=== PATIENT | female | born 1955 | race Caucasian/White ===

== ENCOUNTER → 2020-06-23 | Outpatient (CLI) | payer BC, SELFPAY ==
[2020-06-23 10:36] LABS: Anion Gap 6 (5-15); BUN 8 mg/dL (7-18); BUN/Creat Ratio 10.2 RATIO (10-20); Chloride 110 mmol/L (98-107); Cholesterol 202 mg/dL (200); Creatinine, Serum 0.78 mg/dL (0.55-1.02); EST Glomerular Filtration Rate 79 mL/min (>60); Est Glom Filt Rate - Afr Amer 95 mL/min (>60); Glucose 82 mg/dL (74-106); High Density Lipoprotein 59 mg/dL; Phosphorus 3.4 mg/dL (2.5-4.9); Potassium 3.6 mmol/L (3.5-5.1); Sodium Level 142 mmol/L (136-145); Thyroid Stim Hormone (TSH) 2.12 uIU/mL (0.358-3.74); Triglycerides 99 mg/dL; Very Low Density Lipoprotein 20 mg/dL (5-40)
== END | disposition home or self-care (01) ==
LOC: MTLAB 07:07
PROVIDERS: PCP Family Medicine; Referring Provider Family Medicine; Visit Provider Family Medicine
DX: M81.0 Age-related osteoporosis without current pathological fracture (principal); Z13.220 Encounter for screening for lipoid disorders
CPT/HCPCS: 36415; 80048; 80061; 82306; 82330; 84100; 84443

== ENCOUNTER 2021-10-13 15:43 | Outpatient (CLI) | payer BC, SELFPAY ==
[2021-10-13 18:03] LABS: Absolute Lymphocyte Count 1.94 X10^3/uL (0.83-4.51); Absolute Neutrophil Count 3.5 X10^3/uL (2.0-7.7); Basophil# 0.04 X10^3/uL; Basophil% 0.6 % (0-1); Eosinophil# 0.37 X10^3/uL; Hematocrit 44.6 % (37-47); Hemoglobin 14.9 g/dL (12.0-15.0); Lymphocyte # 1.94 X10^3/ul (0.83-4.51); Lymphocyte % 31.3 % (19-41); Mean Corp Hgb Conc 33.4 g/dL (32-36); Mean Corpuscular Hgb 30.3 pg (27.0-32.0); Mean Corpuscular Volume 90.8 fL (81-99); Mean Platelet Vol. 11.6 fl (6.2-12.0); Monocyte# 0.38 X10^3/uL; Monocyte% 6.1 % (0-10); NRBC Flagged by Analyzer 0 % (0-5); Neutrophil # 3.45 X10^3/uL (2.7-7.7); Neutrophil % 55.7 % (47-70); Platelet Count 182 K/mm3 (150-450); RBC Distribution Width CV 12.6 % (11.6-14.6); RBC Distribution Width SD 41.6 fl (35.1-43.9); Red Blood Count 4.91 M/mm3 (4.2-5.4); White Blood Count 6.2 K/mm3 (4.4-11.0)
[2021-10-13 18:41] LABS: Anion Gap 5 (5-15); BUN 21 mg/dL (7-18); BUN/Creat Ratio 27.1 RATIO (10-20); Chloride 105 mmol/L (98-107); Creatinine, Serum 0.77 mg/dL (0.55-1.02); EST Glomerular Filtration Rate 80 mL/min (>60); Est Glom Filt Rate - Afr Amer 96 mL/min (>60); Glucose 85 mg/dL (74-106); Sodium Level 140 mmol/L (136-145); Thyroid Stim Hormone (TSH) 1.31 uIU/mL (0.358-3.74)
== END 2021-10-13 23:59 | disposition short-term general hospital (02) ==
PROVIDERS: PCP Family Medicine; Referring Provider Family Medicine; Visit Provider Family Medicine
DX: R00.2 Palpitations (principal)
CPT/HCPCS: 36415; 80048; 84443; 85025

== ENCOUNTER → 2022-01-21 | Outpatient (CLI) | payer BC, SELFPAY ==
--- NOTE | 2022-01-21 07:51 | ECHOD_ITS ---
Version 2 Reason For Study: Arrhythmia Procedure This was a 2D Doppler, Color Flow transthoracic echocardiogram. Exam performed in department. Left Ventricle Normal LV size. Left ventricular systolic function is normal. The estimated ejection fraction is 55 %. Stage 1 diastolic dysfunction. No regional wall motion abnormalities noted. Right Ventricle Normal RV size. Normal systolic function. Atria Normal left atrium. Normal right atrium. Patent foramen ovale. Mitral Valve Normal mitral valve. Tricuspid Valve Normal tricuspid valve. Mild (1+) tricuspid valve insufficiency. Aortic Valve Trisinus/trileaflet aortic valve. Mild (1+) eccentric aortic valve insufficiency. Pulmonic Valve Normal pulmonic valve. Great Vessels Normal aortic root. The pulmonary artery is normal size. Normal inferior vena cava. Pericardium/Pleural No pericardial effusion. Medication Performed a rapid injection of agitated mix of 9 cc saline and 1cc air to assess for atrial septal defect. MMode/2D Measurements & Calculations LVIDd: 4.1 cm IVSd: 1.0 cm Ao root diam: 3.3 cm LVIDs: 2.4 cm LVPWd: 1.0 cm RVDd: 3.9 cm FS: 40.8 % LAV(MOD-bp): 50.8 ml LVAd ap4: 22.4 cm2 SV(MOD-sp4): 42.0 ml LAV(MOD-bp) Indexed: 24.2 ml/m2 LVLd ap4: 6.5 cm LAV(MOD-sp2): 45.0 ml EDV(MOD-sp4): 63.8 ml LAV(MOD-sp4): 53.1 ml EDV(sp4-el): 65.8 ml LVAs ap4: 11.8 cm2 LVLs ap4: 5.4 cm ESV(MOD-sp4): 21.8 ml ESV(sp4-el): 21.9 ml EF(MOD-sp4): 65.8 % EF(sp4-el): 66.8 % SV(sp4-el): 43.9 ml LA A4 area: 19.0 cm2 LA dimension(2D): 4.2 cm RA A4 area: 15.1 cm2 Doppler Measurements & Calculations MV E max robert: 42.4 cm/sec Lat Peak E' Robert: 10.5 cm/sec Med Peak E' Robert: 5.8 cm/sec MV A max robert: 51.8 cm/sec E/E' lat: 4.0 E/E' med: 7.3 MV E/A: 0.82 Ao V2 max: 130.5 cm/sec LV V1 max: 113.2 cm/sec PA V2 max: 99.0 cm/sec Ao max P.8 mmHg LV V1 max P.1 mmHg Ao V2 mean: 91.5 cm/sec Ao mean P.7 mmHg Ao V2 VTI: 28.6 cm TR max robert: 213.2 cm/sec TR max P.2 mmHg ECHO/Echo Complete Interpretation Summary Normal LV size. Left ventricular systolic function is normal. Patent foramen ovale. The estimated ejection fraction is 55 %. Mild (1+) eccentric aortic valve insufficiency. Stage 1 diastolic dysfunction. Mild (1+) tricuspid valve insufficiency. Ordering Physician: Angel Rosenthal Referring Physician: Rajesh Carrlol Performed By: Virginia Beyer, RDCS, RVT
== END | disposition home or self-care (01) ==
LOC: CVS 07:51
PROVIDERS: PCP Family Medicine; Referring Provider Internal Medicine Cardiovascular Disease; Visit Provider Internal Medicine Cardiovascular Disease
DX: R00.2 Palpitations (principal)
CPT/HCPCS: 93306; A4216

== ENCOUNTER → 2022-04-13 | Outpatient (CLI) | payer BC, SELFPAY ==
--- NOTE | 2022-04-13 14:51 | STRESSREP ---
Stress Test Report Exercise myocardial perfusion stress test. 66-year-old lady with a history of paroxysmal atrial fibrillation. Stress protocol: Resting EKG demonstrates sinus rhythm with a rate of 62 bpm normal intervals are noted resting blood pressure is 104/70 mmHg. The patient exercised according to regular Neal protocol for a total duration of 4 minutes and 30 seconds. Patient completed 1 minute and 30 seconds into stage II of the Neal protocol the maximum heart rate attained was 160 bpm which was 102% of max impacted heart rate the maximum workload was 7 metabolic equivalents. At rest there were no ST or T wave changes noted to suggest ischemia and at peak exercise upsloping ST changes were noted with did not meet the criteria for ischemia. No clinical angina was noted. Test was terminated due to dyspnea. The peak blood pressure was 180/100 mmHg. Myocardial perfusion protocol. 14.6 mCi of technetium 99m sestamibi was injected at rest. The patient exercised according to regular Neal protocol for 4-1/2 minutes and at peak exercise 44.9 mCi of technetium 99m sestamibi was injected stress images were obtained stress and rest images were reconstructed and compared in the short axis vertical long and horizontal long axis. Gated images were also obtained. Perfusion SPECT analysis: Review of the stress images demonstrate normal uptake of tracer noted in all areas of the myocardium. The resting images similar demonstrate normal uptake of tracer noted in all areas of the myocardium. No areas of reversibility are noted suggest ischemia and no previous infarct is noted. Gated SPECT analysis: The gated ejection fraction is 74%. Conclusion: Normal exercise myocardial perfusion stress test at a moderate workload. Preserved ejection fraction.
== END | disposition home or self-care (01) ==
PROVIDERS: PCP Family Medicine; Referring Provider Physician Assistant Medical; Visit Provider Physician Assistant Medical
DX: G47.33 Obstructive sleep apnea (adult) (pediatric) (principal); I48.0 Paroxysmal atrial fibrillation; E66.9 Obesity, unspecified; R06.00 Dyspnea, unspecified
CPT/HCPCS: 78452; 93017; A9500; A4216

== ENCOUNTER → 2022-04-14 | Outpatient (CLI) | payer BC, SELFPAY | END | disposition home or self-care (01) | LOC: SL 21:35 | PROVIDERS: PCP Family Medicine; Visit Provider Physician Assistant Medical | DX: G47.33 Obstructive sleep apnea (adult) (pediatric) (principal); I48.0 Paroxysmal atrial fibrillation; E66.9 Obesity, unspecified | CPT/HCPCS: 95810 ==

== ENCOUNTER → 2023-02-16 | Outpatient (CLI) | payer MEDICARE, SELFPAY ==
[2023-02-16 15:31] LABS: Absolute Lymphocyte Count 2.14 X10^3/uL (0.83-4.51); Absolute Neutrophil Count 3.5 X10^3/uL (2.0-7.7); Basophil# 0.04 X10^3/uL; Basophil% 0.6 % (0-1); Eosinophil# 0.09 X10^3/uL; Eosinophils% 1.4 % (0-5); Hematocrit 46.6 % (37-47); Lymphocyte # 2.14 X10^3/ul (0.83-4.51); Lymphocyte % 34.1 % (19-41); Mean Corp Hgb Conc 32.2 g/dL (32-36); Mean Corpuscular Volume 93.2 fL (81-99); Mean Platelet Vol. 12.1 fl (6.2-12.0); Monocyte# 0.46 X10^3/uL; Monocyte% 7.3 % (0-10); NRBC Flagged by Analyzer 0 % (0-5); Neutrophil # 3.53 X10^3/uL (2.7-7.7); Neutrophil % 56.3 % (47-70); Platelet Count 179 K/mm3 (150-450); RBC Distribution Width CV 12.7 % (11.6-14.6); RBC Distribution Width SD 43.1 fl (35.1-43.9); White Blood Count 6.3 K/mm3 (4.4-11.0)
[2023-02-16 16:38] LABS: Anion Gap 2 (5-15); BUN 15 mg/dL (7-18); BUN/Creat Ratio 16.8 RATIO (10-20); Calcium,Total 8.8 mg/dL (8.5-10.1); Chloride 110 mmol/L (98-107); EST Glomerular Filtration Rate 67 mL/min (>60); Est Glom Filt Rate - Afr Amer 81 mL/min (>60); Glucose 86 mg/dL (74-106); Potassium 3.9 mmol/L (3.5-5.1); Sodium Level 140 mmol/L (136-145); Thyroid Stim Hormone (TSH) 2.08 uIU/mL (0.358-3.74)
== END | disposition home or self-care (01) ==
LOC: MTLAB 14:02
PROVIDERS: PCP Family Medicine; Referring Provider Physician Assistant Medical; Visit Provider Physician Assistant Medical
DX: R00.2 Palpitations (principal); I48.0 Paroxysmal atrial fibrillation
CPT/HCPCS: 36415; 80048; 84443; 85025

== ENCOUNTER → 2023-02-17 | Outpatient (CLI) | payer MEDICARE, SELFPAY | END | disposition home or self-care (01) | PROVIDERS: PCP Family Medicine; Referring Provider Physician Assistant Medical; Visit Provider Physician Assistant Medical | DX: R00.2 Palpitations (principal); I48.0 Paroxysmal atrial fibrillation | CPT/HCPCS: 93225; 93226 ==

== ENCOUNTER → 2023-04-26 | Outpatient (CLI) | payer MEDICARE, SELFPAY ==
--- NOTE | 2023-04-26 10:01 | BI_ITS ---
MAMMOGRAPHY - BILATERAL SCREENING REASON FOR EXAM: Female, 67 years old. Routine annual screening examination. PERTINENT HISTORY: Grandmother with breast cancer. Remote left ultrasound breast biopsy. TECHNIQUE: Digital bilateral breast ange (3D mammographic acquisition) in the CC and MLO projections. 2-D mediolateral oblique (MLO) and craniocaudad (CC) views of both breasts were obtained. CAD: Full Field Digital Mammography with Computer Added Detection was performed. COMPARISON: Comparison is made with prior outside examination dated June 09, 2021. FINDINGS: Breast Composition: There are scattered areas of fibroglandular density. There are no dominant masses or suspicious calcifications. A tissue clip marker is seen in the upper central portion of the left breast. Stable benign-appearing left axillary lymph nodes. No other significant abnormalities are identified. There has been no significant change since the prior study. BI/SCRN MAMM (CAD)W/ANGE BILAT IMPRESSION: Stable bilateral screening mammogram. Yearly follow-up mammogram recommended. (A) ASSESSMENT CATEGORY: BIRADS Category 2: Benign. A letter regarding these results will be sent to the patient by the facility within 30 days. Approximately 10% of breast cancers are not detected by mammography. A normal mammogram should not delay biopsy of a clinically suspicious abnormality. [id number] Electronically Signed: Jaun Caballero MD at 11:24 EDT ,
--- NOTE | 2023-04-26 10:07 | BD_ITS ---
STUDY: DUAL ENERGY X-RAY ABSORPTIOMETRY / DXA REASON FOR EXAM: Female, 67 years old. [id number] TECHNIQUE: Bone Mineral Density (BMD) measurements of lumbar spine and bilateral hips were obtained. COMPARISON: None. FINDINGS: Lumbar Spine (L1-L4): g/cm2 (0.908) / T-score (-1.2) / Z-score (0.6) Findings are suggestive of osteopenia with a low fracture risk. Left Femur Total: g/cm2 (0.778) / T-score (-1.3) / Z-score (-0.1) Left Femoral Neck: g/cm2 (0.635) / T-score (-1.9) / Z-score (-0.4) Right Femur Total: g/cm2 (0.796) / T-score (-1.2) / Z-score (0.1) Right Femoral Neck: g/cm2 (0.669) / T-score (-1.6) / Z-score (-0.1) BD/Dexa Bone Density Study IMPRESSION: The patient is considered osteopenic as outlined below according to World Claudy Organization (WHO) criteria with a moderate fracture risk. Reference Information: The T-score is the number of standard deviations above or below the standard which is normal for young adults at their peak bone mineral density. The World Health Organization (WHO) interprets the T-scores as follows: Above -1 Normal bone density Between -1 and -2.5 Osteopenia Equal to / or below -2.5 Osteoporosis As a practical clinical guideline, osteopenia may be graded as follows: Mild -1 through -1.5 Moderate -1.6 through -2.0 Severe -2.1 through -2.4 The Z-score is the number of standard deviations above or below age-matched controls. A Z-score of less than -1.5 would be considered abnormal. References: 1. NIH Osteoporosis and Related Bone Diseases www osteo.org 2. International Society for Clinical Densitometry www iscd.org 3. National Osteoporosis Foundation www nof.org Electronically Signed: Jaun Caballero MD at 10:40 EDT ,
== END | disposition home or self-care (01) ==
LOC: OPBD 09:59
PROVIDERS: PCP Family Medicine; Referring Provider Family Medicine; Visit Provider Family Medicine
DX: Z12.31 Encounter for screening mammogram for malignant neoplasm of breast (principal); Z78.0 Asymptomatic menopausal state; M81.0 Age-related osteoporosis without current pathological fracture
CPT/HCPCS: 77063; 77067; 77080

== ENCOUNTER → 2024-05-17 | Outpatient (CLI) | payer MEDICARE, SELFPAY ==
[2024-05-17 10:55] LABS: PTHIN 90.7 pg/mL (18.4-80.1)
[2024-05-17 11:48] LABS: Anion Gap 4 (5-15); BUN 11 mg/dL (7-18); BUN/Creat Ratio 13.9 RATIO (10-20); Calcium,Total 9.2 mg/dL (8.5-10.1); Chloride 111 mmol/L (98-107); Cholesterol 220 mg/dL (200); Creatinine, Serum 0.79 mg/dL (0.55-1.02); EST Glomerular Filtration Rate 77 mL/min (>60); Est Glom Filt Rate - Afr Amer 93 mL/min (>60); Glucose 88 mg/dL (74-106); High Density Lipoprotein 57 mg/dL; Sodium Level 140 mmol/L (136-145); Triglycerides 123 mg/dL; Very Low Density Lipoprotein 25 mg/dL (5-40)
== END | disposition home or self-care (01) ==
LOC: MTLAB 07:06
PROVIDERS: PCP Family Medicine; Referring Provider Family Medicine; Visit Provider Family Medicine
DX: I48.91 Unspecified atrial fibrillation (principal); M85.80 Other specified disorders of bone density and structure, unspecified site
CPT/HCPCS: 36415; 80048; 80061; 82306; 83970; 84443

== ENCOUNTER → 2024-05-22 | Outpatient (CLI) | payer MEDICARE, SELFPAY ==
--- NOTE | 2024-05-22 07:41 | BI_ITS ---
MAMMOGRAPHY - BILATERAL SCREENING REASON FOR EXAM: Female, 68 years old. Routine annual screening examination. PERTINENT HISTORY: Grandmother with breast cancer. Remote left ultrasound-guided breast biopsy. TECHNIQUE: Digital bilateral breast ange (3D mammographic acquisition) in the CC and MLO projections. 2-D mediolateral oblique (MLO) and craniocaudad (CC) views of both breasts were obtained. CAD: Full Field Digital Mammography with Computer Added Detection was performed. COMPARISON: Comparison is made with prior study dated April 26, 2023. FINDINGS: Breast Composition: There are scattered areas of fibroglandular density. There are no dominant masses or suspicious calcifications. A tissue clip marker is once again seen in the upper central portion of the left breast. No other significant abnormalities are identified. There has been no significant change since the prior study. BI/SCRN MAMM (CAD)W/ANGE BILAT IMPRESSION: Stable bilateral screening mammogram. Yearly follow-up mammogram recommended. (A) ASSESSMENT CATEGORY: BIRADS Category 2: Benign. A letter regarding these results will be sent to the patient by the facility within 30 days. Approximately 10% of breast cancers are not detected by mammography. A normal mammogram should not delay biopsy of a clinically suspicious abnormality. [id number] Electronically Signed: Jaun Caballero MD at 8:30 EDT ,
== END | disposition home or self-care (01) ==
LOC: OPBI 07:40
PROVIDERS: PCP Family Medicine; Referring Provider Family Medicine; Visit Provider Family Medicine
DX: Z12.31 Encounter for screening mammogram for malignant neoplasm of breast (principal)
CPT/HCPCS: 77063; 77067

== ENCOUNTER → 2025-06-19 | Outpatient (CLI) | payer MEDICARE, SELFPAY ==
[2025-06-19 11:58] LABS: AST(SGOT) 16 U/L (<=31); Alanine Aminotransfer ALT/SGPT 12 U/L (<=34); Albumin, Serum 4.0 g/dL (3.4-4.8); Alkaline Phosphatase 58 U/L (35-104); Anion Gap 9 (5-15); BUN 15 mg/dL (4-19); BUN/Creat Ratio 18.1 RATIO (10-20); Calcium,Total 9.4 mg/dL (7.6-11.0); Carbon Dioxide 26.4 mmol/L (21.0-32.0); Chloride 106 mmol/L (98-108); Cholesterol 249 mg/dL (<=200); Globulin 2.7 g/dL (2.2-4.2); Glucose 90 mg/dL (70-99); Low Density Lipoprotein Calc. 160 mg/dL; Potassium 4.5 mmol/L (3.3-5.1); Triglycerides 103 mg/dL; Very Low Density Lipoprotein 21 mg/dL (5-40); cholesterol:hdl ratio screen 3.63
== END | disposition home or self-care (01) ==
LOC: LAB 10:18
PROVIDERS: PCP Family Medicine; Referring Provider Physician Assistant Medical; Visit Provider Physician Assistant Medical
DX: I48.0 Paroxysmal atrial fibrillation (principal); E78.5 Hyperlipidemia, unspecified
CPT/HCPCS: 36415; 80053; 80061

== ENCOUNTER → 2025-07-01 | Outpatient (CLI) | payer MEDICARE, SELFPAY ==
--- NOTE | 2025-07-01 07:14 | BI_ITS ---
EXAM: SCRN MAMM (CAD)W/ANGE BILAT DATE: 07/01/2025 CLINICAL HISTORY: F, Age 69 y/o , SCREEN Grandmother with breast cancer. History of prior left ultrasound-guided breast biopsy. TECHNIQUE: Procedure Code: [id number] Modality: MG Procedure: SCRN MAMM (CAD)W/ANGE BILAT COMPARISON: Prior exam(s) dated May 22, 2024.. FINDINGS: TISSUE DENSITY: The breasts are heterogeneously dense, which may obscure small masses. Bilateral Breast Mammographic Findings: No significant masses, calcifications or other abnormalities are identified. Stable bilateral fat containing axillary lymph nodes. No suspicious masses, areas of developing architectural distortion, or suspicious calcifications. There has been no significant interval change. BI/SCRN MAMM (CAD)W/ANGE BILAT IMPRESSION: Stable bilateral screening mammogram. OVERALL FINAL ASSESSMENT BI-RADS 2: BENIGN RECOMMENDATION: Routine annual follow-up in 1 Year Additional Recommendation none A letter with findings and recommendations will be mailed to the patient. Reading Location: [place] [id number]
--- NOTE | 2025-07-01 07:17 | BD_ITS ---
PROCEDURE: DEXA BONE DENSITY STUDY 07/01/2025 REASON FOR EXAM: F, age 69 y/o . Postmenopausal. TECHNIQUE: Procedure Code: BDDBD Modality: DX Procedure: DEXA BONE DENSITY STUDY COMPARISON: April 26, 2023. FINDINGS: BMD and T-SCORES Lumbar spine: 0.935 g/cm2, T-score -0.9 Levels: L1 through L4 Change from prior: Improvement of 3%. Left femoral neck: 0.574 g/cm2, T-score -2.5 Femoral neck comparison data not recommended for monitoring change. Left total hip: 0.723 g/cm2, T-score -1.8 Change from prior: Loss of 7%. Right femoral neck: 0.623 g/cm2, T-score -2.0 Femoral neck comparison data not recommended for monitoring change. Right total hip: 0.750 g/cm2, T-score -1.6 Change from prior: Loss of 5.8%. The World Health Organization has defined the following categories based on bone density: Normal bone density: T-score equal to or greater than -1.0 Osteopenia: T-score between -1.0 and -2.5 Osteoporosis: T-score equal to or less than -2.5 FRAX (or Comparable) Fracture Risk Assessment: 10 Year Probability of Fracture: Major Osteoporotic Fracture: 12th% Hip Fracture: 2.6% (Note: FRAX is not to be reported in setting of normal range bone density, osteoporosis on DEXA, known history of osteoporosis, prior osteoporotic hip or vertebral fracture, or for any patient undergoing pharmacological treatment for bone loss.) The National Osteoporosis Foundation (NOF) recommends pharmacological treatment for patients with a FRAX 10-year risk of 3% or higher for a hip fracture, or 20% or higher for a major osteoporotic fracture, to prevent osteoporosis and reduce fracture risk. The patient does meet the pharmacological treatment recommendations for prevention of osteoporosis. BD/Dexa Bone Density Study IMPRESSION: OSTEOPENIA. Recommend follow-up as clinically warranted. Reading Location: [place] [id number]
--- OUTSIDE RECORDS SUMMARY | 2025-07-01 07:28 | XMS RPT_ITS | CCD ---
Author Organization [facility] Care Team Providers Care Pattern Repair Person Name Role Phone Dr. Jax Carroll Primary Care Provider Tressa Manzano Attending Provider Unavailable Dr. Jax Carroll Referring Provider Dr. Angel Rosenthal Attending Provider [phone] Jax Carroll Primary Care Provider [phone] Dr. Angel Rosenthal Attending Provider [phone] Jax Carroll Referring Provider PEGGY June Attending Provider PEGGY June Referring Provider PEGGY June Other Provider Dr. Jax Carroll Primary Care Provider [phone] Dr. Jax Carroll Referring Provider PEGGY June Attending Provider PHYSICIAN, NONE Primary Care Physician Unavailab shilo PINTO MD, DR NASCIMENTO Attending Unavailabl e PHYSICIAN, NONE Primary Care Unavailable Dr. Rajesh Carroll MD Primary Care Physicia n Dr. Rajesh Carroll MD Referring Provider Lyly June Attending Physician [phone] Angel Rosenthal Attending Unavailable Rajesh Carroll Primary Care Unavailable Rajesh Carroll Referring Unavailable Lyly June Attending Unavail able Lyly June Referring Unavail able Rajesh Carroll Primary Care Unavailable Fernandez TOP IRONER, Pati Attending Unavailable FernandezPati odell NP Referring Unavailable Rajesh Carroll Primary [facility] Unavailable Lyly June Attending Unavail able Lyly June Referring Unavail able Rajesh Carroll Primary [facility] Unavailable Lyly June Attending Unavail able Rajesh Carroll [facility] Unavailable Rajesh Carroll Referring Unavailable Medications Current Medications Medication Drug Class(es) Dates Sig (Normalized) Sig (Original) apixaban 5 mg oral tablet (18 sources) Factor Xa Inhibitor Start: 04-14-2022 End: 03-10-2025 take 1 tablet by mouth twice daily Apixaban (Eliquis) 5 mg tablet Active 5 mg PO TWICE A DAY 60 March 10, 2025 12:22pm Complies with drug therapy flecainide acetate 100 mg oral tablet (15 sources) Antiarrhythmic Start: 12-01-2023 End: 12-17-2024 take 1 tablet by mouth every twelve hours Flecainide 100 mg tablet Active 100 mg PO Q12H 180 3 December 17, 2024 2:41pm Complies with drug therapy Start: 04-14-2022 End: 12-01-2023 flecainide 100 mg oral table t Dose : 100 mg = 1 tab(s), Oral, q12h, # 180 tab(s), 0 Refill(s) Start Date: 06/26/23 Status: Ordered Magnesium (7 sources) Start: 12-16-2021 take 250 mg by mouth once daily Magnesium Active 250 MG PO DAILY December 16, 2021 1:28pm Start: 12-16-2021 End: 03-25-2022 take 1 tablet by mouth once daily Magnesium 250 mg tablet Discontinued 250 mg PO DAILY December 16, 2021 12:00am March 25, 2022 8:32am Start: 12-16-2021 End: 03-25-2022 take 250 mg by mouth once daily Magnesium Discontinued 250 MG PO DAILY December 16, 2021 12:00am March 25, 2022 8:32am 24 hr metoprolol succinate 25 mg extended release oral tablet (18 sources) beta-Adrenergic Patrick Start: 06-26-2023 Metopr olol Succinate ER 25 mg oral TABLET extended release Dose : 25 mg = 1 tab(s), Oral, qDay, # 30 tab(s), 0 Refill(s) Start Date: 06/26/23 Status: Ordered Start: 12-16-2021 End: 12-17-2024 take 1 tablet by mouth once daily Metoprolol Succinate 25 mg tablet extended release 24 hr Active 25 mg PO DAILY 90 3 December 17, 2024 2:41pm Complies with drug therapy Completed/Discontinued Medications Medication Drug Class(es) Dates Sig (Normalized) Sig (Original) aspirin 81 mg delayed release oral tablet (7 sources) Platelet Aggregation Inhibitor, Nonsteroidal Anti-inflammatory Drug Start: 12-03-2021 End: 06-14-2022 take 1 tablet by mouth once daily Aspirin (Adult Aspirin Regimen) 81 mg tablet,delayed release (DR/EC) Discontinued 81 mg PO DAILY December 03, 2021 12:00am June 14, 2022 2:39pm calcium carbonate 1500 mg oral tablet (7 sources) Start: 12-16-2021 End: 03-25-2022 take 1 tablet by mouth once daily Calcium Carbonate 600 mg calcium (1,500 mg) tablet Discontinued 600 mg PO DAILY December 16, 2021 12:00am March 25, 2022 8:32am escitalopram 10 mg oral tablet (7 sources) Serotonin Reuptake Inhibitor Start: 12-03-2021 End: 12-16-2021 take 1 tablet by mouth once daily Escitalopram Oxalate 10 mg tablet Discontinued 10 mg PO DAILY December 03, 2021 12:00am December 16, 2021 1:28pm Problems Problem Classification Problem Date Documented Date Episodic/Chronic Cardiac dysrhythmias (12 sources) Paroxysmal atrial fibrillation; Translations: [Paroxysmal atrial fibrillation] Onset: 06-19-2025 Chronic Cardiac dysrhythmias (17 sources) Sinus tachycardia; Translations: [Tachycardia, unspecified] Onset: 10-13-2021 Episodic Comment on above: Per 7 day event scarlet tor Disorders of lipid metabolism (3 sources) Hyperlipidemia; Translations: [Hyperlipidemia, unspecified] Onset: 06-19-2025 06-19-2025 Chronic Menopausal disorders (1 source) Unspecified menopausal and perimenopausal disorder; Translations: [Unspecified menopausal and perimenopausal disorder] Onset: 06-19-2025 Chronic Other nutritional; endocrine; and metabolic disorders (7 sources) Obesity; Translations: [Obesity, unspecified] 12-07-2021 Chronic Other nutritional; endocrine; and metabolic disorders (2 sources) Obesity, unspecified; Translations: [Obesity, unspecified] Onset: 06-19-2025 Chronic Other screening for suspected conditions (not mental disorders or infectious disease) (1 source) Encounter for screening mammogram for malignant neoplasm of breast; Translations: [Encounter for screening mammogram for malignant neoplasm of breast] Onset: 06-19-2025 Episodic Residual codes; unclassified (5 sources) Obstructive sleep apnea syndrome; Translations: [Obstructive sleep apnea (adult) (pediatric)] 03-25-2022 Chronic Screening and history of mental health and substance abuse codes (7 sources) Ex-smoker; Translations: [Personal history of nicotine dependence] 12-07-2021 Episodic Comment on above: 2 ppd, quit age 42. Results Test Name Value Interpretation Reference Range Facility Cardiology Visit Reporton Cardiology Visit Report [facility] [address] [place] [address] OFFICE VISIT Date of Service: 06/19/25 MR#: [id number] Acct: [id number] Name: ANNA CRUZ Rep #: [id number] : 1955 Provider: PEGGY Payne Age/Sex: 69/F Location: [facility] Status: Signed HPI HPI History of Present Illness Details: The patient is a 69-year-old female with paroxysmal atrial fibrillation, presenting for follow-up. She reports intermittent episodes of irregular heartbeats, which can last up to 10 minutes and occur 2???3 times per week, though not every week. This week, she has experienced minimal symptoms. She denies chest pain, heaviness, tightness, or worsening shortness of breath. She is currently taking Eliquis, flecainide, and metoprolol. She is physically active, working out at a gym 3???4 times per week. She denies a history of sleep apnea and does not use CPAP. A stress test in 2021 was negative for ischemia at a moderate workload. Echocardiogram in 2021 demonstrated a preserved ejection fraction of 55%, mild concentric aortic valve insufficiency, stage 1 diastolic dysfunction, and mild tricuspid insufficiency. Intake Vital Signs 12/17/24 14:33 06/19/25 08:33 Height 5 ft 4 in 5 ft 4 in Weight: 215 lb 214 lb BMI 36.8 36.7 BP 102/74 117/71 Blood Pressure Location Lt brachial Lt brachial Position Sitting Sitting Respiration 16 16 Pulse 72 68 Pulse Source Monitor Monitor Pulse Oximetry (%) 96 Oxygen Delivery Method room air Intake Visit Reasons: 6 M FU Machine Striper Required: No Accompanied by: Self Is patient in pain?: No Allergies No Known Allergies Allergy (Verified 06/19/25 09:41) Medications ???Medication ???Instructions ???Recorded ???Confirmed ???Type flecainide 100 mg tablet 100 mg PO Q12H #180 tabs 12/17/24 06/19/25 Rx metoprolol succinate 25 mg 25 mg PO DAILY #90 tabs 12/17/24 1 Rx tablet,extended release 24 hr apixaban 5 mg tablet (Eliquis) 5 mg PO BID #60 TABLETS 03/10/25 1 Rx Ejection fraction %: 55 Have you fallen in the past year?: No PFSH Medical History PAF (paroxysmal atrial fibrillation) Obesity Depression Former smoker Family History Father Heart disease Diabetes Mother Thyroid disorder Social History Smoking Status: Former smoker ROS Const Const: Negative for fatigue, weakness or headache(s) Eyes Eyes: Negative for change in vision ENT ENT: Negative for headache(s), dizziness, Nosebleed/epistaxis or balance problems Cardio Chest Pain: No Palpitations: Yes (Not every day) feels like its: fast, skipping and irregular Edema: None Resp Respiratory: Negative for SOB with activity GI GI: Negative nausea, vomiting, heartburn or bright, red blood in stools : Negative for hematuria Musc Musc: Negative for balance problems Neuro Neuro: Negative for dizziness, lightheadedness, syncope, headache(s) or weakness Endo Endo: Negative for fatigue Cardiology Exam Const Appearance: cooperative, healthy appearing, comfortable and no acute distress Nutritional Appearance: well nourished and obese Orientation: alert, awake and oriented x3 Head Head: normal to inspection Ears: hearing grossly normal bilaterally Nose: external nose normal Face and Sinus: face symmetric Mouth: moist mucous membranes Eyes General: appearance normal, both eyes and all related structures Eyelids: eyelids normal EOM: EOM intact bilaterally Neck Neck: normal visual inspection and no JVD Carotids: normal carotid upstroke Chest Chest inspection: normal inspection of the chest, symmetric chest movement and normal respiratory effort; Negative cough Auscultation: Bilateral: Clear to Auscultation Cardio Rate: other (Normal) Rhythm: regular rhythm Heart sounds: S1 normal and S2 normal; Negative rub, gallop or murmur GI GI: normal to inspection and obese Neuro General: patient alert, patient awake, patient oriented x3 and CN's II-XI intact bilaterally Skin Skin: no rashes or lesions noted Extremities Pulses: Normal: Right Posterior Tibial Pulse, Left Posterior Tibial Pulse, Right Radial Pulse and Left Radial Pulse Lower Extremity Edema: None: Bilateral Psych Psychological: normal affect Supplemental Info Supplemental Information Echocardiogram 01/21/2022: Normal LV size. Left ventricular systolic function is normal. Patent foramen ovale. The estimated ejection fraction is 55 %. Mild (1+) eccentric aortic valve insufficiency. Stage 1 diastolic dysfunction. Mild (1+) tricuspid valve insufficiency. Stress Test 04/13/22 Conclusion: Normal exercise myocardial perfusion stress test at (more content not included)... Normal [facility] Comprehensive Metabolic Prof ilon 06-19-2025 Albumin [Mass/Vol] 4.0 g/dL Normal 3.4-4.8 [facility] Comment on above: Performed By: #### L 500.4050, L500.4100 #### [facility] [address] [place], [address] Albumin/Globulin [Mass ratio] 1.5 {ratio} Normal 0.9-2.4 [facility] Comment on above: Performed By: #### L 500.4050, L500.4100 #### [facility] [address] [place], [address] ALK PHOS 58 U/L Normal 35-104 [facility] Comment on above: Performed By: #### L 500.4050, L500.4100 #### [facility] [address] [place], [address] ALT [Catalytic activity/Vol] 12 U/L Normal <=34 [facility] Comment on above: Performed By: #### L 500.4050, L500.4100 #### [facility] [address] [place], [address] AST [Catalytic activity/Vol] 16 U/L Normal <=31 [facility] Comment on above: Performed By: #### L 500.4050, L500.4100 #### [facility] [address] [place], [address] Bilirubin [Mass/Vol] 0.47 mg/dL Normal 0.00-1.30 [facility] Comment on above: Performed By: #### L 500.4050, L500.4100 #### [facility] [address] [place], [address] BUN/CRE 18.1 RATIO Normal 10-20 [facility] Comment on above: Performed By: #### L 500.4050, L500.4100 #### [facility] [address] [place], [address] Calcium [Mass/Vol] 9.4 mg/dL Normal 7.6-11.0 [facility] Comment on above: Performed By: #### L 500.4050, L500.4100 #### [facility] [address] [place], [address] Chloride [Moles/Vol] 106 mmol/L Normal 98-108 [facility] Comment on above: Performed By: #### L 500.4050, L500.4100 #### [facility] [address] [place], [address] CO2 [Moles/Vol] 26.4 mmol/L Normal 21.0-32.0 [facility] Comment on above: Performed By: #### L 500.4050, L500.4100 #### [facility] [address] [place], [address] Creatinine [Mass/Vol] 0.81 mg/dL Normal 0.70-1.20 [facility] Comment on above: Performed By: #### L 500.4050, L500.4100 #### [facility] [address] [place], [address] GAP 9 Normal 5-15 [facility] Comment on above: Performed By: #### L 500.4050, L500.4100 #### [facility] [address] [place], [address] GFR/1.73 sq M.predicted among non-blacks MDRD (S/P/Bld) [Vol rate/Area] 79 mL/min/{1.73_m2} Normal >60 [facility] Comment on above: Result Comment: mL/m in/1.73m2 CKD-EPI Creatinine Equation (2020) Performed By: #### L 500.4050, L500.4100 #### [facility] [address] [place], [address] Globulin (S) [Mass/Vol] 2.7 g/dL Normal 2.2-4.2 [facility] Comment on above: Performed By: #### L 500.4050, L500.4100 #### [facility] [address] [place], [address] Glucose [Mass/Vol] 90 mg/dL Normal 70-99 [facility] Comment on above: Performed By: #### L 500.4050, L500.4100 #### [facility] [address] [place], [address] Potassium [Moles/Vol] 4.5 mmol/L Normal 3.3-5.1 [facility] Comment on above: Performed By: #### L 500.4050, L500.4100 #### [facility] [address] [place], [address] Sodium [Moles/Vol] 140 mmol/L Normal 133-145 [facility] Comment on above: Performed By: #### L 500.4050, L500.4100 #### [facility] [address] [place], [address] T PROT 6.6 g/dL Normal 5.9-8.4 [facility] Comment on above: Performed By: #### L 500.4050, L500.4100 #### [facility] [address] [place], [address] Urea nitrogen [Mass/Vol] 15 mg/dL Normal 4-19 [facility] Comment on above: Performed By: #### L 500.4050, L500.4100 #### [facility] [address] [place], [address] Lipid Profileon 06-19-2025 CHOL:HDL 3.63 Normal [facility] Comment on above: Performed By: #### L 500.4050, L500.4100 #### [facility] [address] [place], [address] Cholesterol [Mass/Vol] 249 mg/dL High <=200 [facility] Comment on above: Result Comment: Chol esterol level, Desirable <200 mg/dL Borderline high cholesterol 200-239 mg/dL High cholesterol >=240 mg/dL Recommendations of the NCEP Adult Treatment Panel for the following risk-cutoff thresholds for the [place] population. Performed By: #### L 500.4050, L500.4100 #### [facility] [address] [place], [address] Cholesterol in HDL [Mass/Vol] 69 mg/dL Normal [facility] Comment on above: Result Comment: Lili onal Cholesterol Education Program (NCEP) guidelines: <40 mg/dL: Low HDL-cholesterol (major risk factor for CHD) >= 60 mg/dL: High HDL-cholesterol (negative risk factor for CHD) HDL-cholesterol is affected by a number of factors, e.g. smoking, exercise, hormones, sex and age. Performed By: #### L 500.4050, L500.4100 #### [facility] [address] [place], [address] Cholesterol in LDL [Mass/Vol] 160 mg/dL Normal [facility] Comment on above: Result Comment: Bord fjobzt=738-901 mg/dL Higher Dlsw=700 mg/dL or greater Friedwald Equation for LDL-C Performed By: #### L 500.4050, L500.4100 #### [facility] [address] [place], [address] Cholesterol in VLDL [Mass/Vol] 21 mg/dL Normal 5-40 [facility] Comment on above: Performed By: #### L 500.4050, L500.4100 #### [facility] [address] [place], [address] Triglyceride [Mass/Vol] 103 mg/dL Normal [facility] Comment on above: Result Comment: The drugs N-Acetylcysteine and Metamizole may falsely depress this assay. Normal range: <150 mg/dL Borderline High: 150-199 mg/dL High: 200-499 mg/dL Very High: >500 mg/dL Performed By: #### L 500.4050, L500.4100 #### [facility] [address] [place], [address] 12 Lead EKG performed by [facility] on 12-17-2024 12 Lead EKG performed by [facility] [address] [place] [address] 12 Lead EKG performed by [facility] 12/17/24 1434 MR#: [id number] Acct: [id number] Name: ANNA CRUZ Rep #: [id number] : 1955 69 From: Angel Rosenthal MD Attending Dr: Dr. 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 ABNORMAL Electronically signed on 12/18/2024 at 11:12 by Angel Rosenthal Software Version [id number] 12/18/24 1114 Date Angel Rosenthal MD CC: Dr. Rajesh Carroll MD Date Dictated: 12/17/24 143 Date Transcribed: 12/17/241433 [employer]: [place] Signed Normal [facility] Cardiology Visit Reporton Cardiology Visit Report [facility] [place] [address] OFFICE VISIT Date of Service: 12/17/24 MR#: [id number] Acct: [id number] Name: ANNA CRUZ Rep #: [id number] : 1955 Provider: Dr. Angel Rosenthal MD Age/Sex: 69/F Location: [facility] Status: Signed HPI HPI History of Present Illness Details: Anna Coronel is a 69-year-old female that presents today for cardiovascular follow-up. She does have a history of paroxysmal atrial fibrillation and returns today for a follow-up visit. She denies chest, arm, jaw, or neck discomfort. She states occasional palpitations that she describes as a flutter. This occurs 2-3 times a week and very short lasting. She denies bilateral lower extremity edema. She denies claudication. She denies shortness of breath with activity, shortness of breath at rest, orthopnea, or PND. She denies chronic cough. She denies significant, sudden weight gain. She denies lightheadedness, dizziness, near-syncope, or syncope. She denies blood in urine, blood in stool, or epistaxis. He denies fever with chills. She denies myalgia. She denies fatigue. Her exercise level has remained stable. Intake Vital Signs 12/01/23 08:50 12/17/24 14:33 Height 5 ft 4 in 5 ft 4 in Weight: 215 lb BMI 36.8 BP 102/74 Blood Pressure Location Lt brachial Position Sitting Respiration 16 Pulse 72 Pulse Source Monitor Intake Visit Reasons: 1 Y FU Machine Striper Required: No Accompanied by: Self Allergies No Known Allergies Allergy (Verified 12/17/24 14:37) Medications ???Medication ???Instructions ???Recorded ???Confirmed ???Type apixaban 5 mg tablet (Eliquis) 5 mg PO BID #60 TABLETS 12/17/24 0 12/17/24 Rx flecainide 100 mg tablet 100 mg PO Q12H #180 tabs 12/17/24 12/17/24 Rx metoprolol succinate 25 mg 25 mg PO DAILY #90 tabs 12/17/24 0 12/17/24 Rx tablet,extended release 24 hr Have you fallen in the past year?: No PFSH Medical History PAF (paroxysmal atrial fibrillation) Obesity Depression Former smoker Family History Father Heart disease Diabetes Mother Thyroid disorder Social History Smoking Status: Former smoker ROS Const Const: Negative for fatigue, weakness, headache(s), daytime sleepiness or difficulty sleeping ENT ENT: Negative for headache(s), dizziness or Nosebleed/epistaxis Cardio Chest Pain: No Palpitations: Yes feels like its: fast and skipping Edema: None Resp Respiratory: Negative for SOB with activity, SOB at rest, SOB orthopnea SOB lying down or Cough GI GI: Negative nausea, vomiting or heartburn Neuro Neuro: Negative for dizziness, lightheadedness, near syncope, headache(s) or weakness Endo Endo: Negative for fatigue Cardiology Exam Const Appearance: cooperative, healthy appearing, comfortable and no acute distress Nutritional Appearance: well nourished and obese Orientation: alert, awake and oriented x3 Head Head: normal to inspection Ears: hearing grossly normal bilaterally Nose: external nose normal Face and Sinus: face symmetric Mouth: moist mucous membranes Eyes General: appearance normal, both eyes and all related structures Eyelids: eyelids normal EOM: EOM intact bilaterally Neck Neck: normal visual inspection and no JVD Carotids: normal carotid upstroke Chest Chest inspection: normal inspection of the chest, symmetric chest movement and normal respiratory effort; Negative cough Auscultation: Bilateral: Clear to Auscultation Cardio Rate: other (Normal) Rhythm: regular rhythm Heart sounds: S1 normal and S2 normal; Negative rub, gallop or murmur GI GI: normal to inspection and obese Neuro General: patient alert, patient awake, patient oriented x3 and CN's II-XI intact bilaterally Skin Skin: no rashes or lesions noted Extremities Pulses: Normal: Right Posterior Tibial Pulse, Left Posterior Tibial Pulse, Right Radial Pulse and Left Radial Pulse Lower Extremity Edema: None: Bilateral Psych Psychological: normal affect Supplemental Info Supplemental Information Echocardiogram 01/21/2022: Normal LV size. Left ventricular systolic function is normal. Patent foramen ovale. The estimated ejection fraction is 55 %. Mild (1+) eccentric aortic valve insufficiency. Stage 1 diastolic dysfunction. Mild (1+) tricuspid valve insufficiency. Stress Test 04/13/22 Conclusion: Normal exercise myocardial perfusion stress test at a moderate workload. Preserved ejection fraction. 24 Holter Monitor 02/17/23 Conclusion NSR with Intermittent BBB and Paroxysmal Atrial Fibrillation with occasional PACs/PVCs Labs: LDL Cholesterol 138 mg/dL (0-130) H HDL Cholesterol 57 mg/dL (40-) (more content not included)... Normal [facility] Absolute lymphocyte countOrd ered By: Lyly Wade on 02-16-2023 Lymphocytes Auto (Unsp spec) [#/Vol] 2.14 10*3/uL 0.83-4.51 [facility] Basophil percentageOrdered B y: Lyly Wade on 02-16-2023 Basophils/100 WBC (Bld) 0.6 % 0-1 [facility] Chloride [Moles/Vol] 110 mmol/L 98-107 [facility] Eosinophils/100 WBC (Bld) 1.4 % 0-5 [facility] Glucose [Mass/Vol] 86 mg/dL 74-[facility] Neutrophils (Bld) [#/Vol] 3.5 10*3/uL 2.0-7.7 [facility] Neutrophils/100 WBC (Bld) 56.3 % 47-70 [facility] Potassium [Moles/Vol] 3.9 mmol/L 3.5-5.1 [facility] Sodium [Moles/Vol] 140 mmol/L 136-145 [facility] WBC (Bld) [#/Vol] 6.3 10*3/uL 4.4-11.0 [facility] Blood erythrocytes count (nu mber/volume)Ordered By: Lyly Wade on 02-16-2023 RBC (Bld) [#/Vol] 5.00 10*6/uL 4.2-5.4 [facility] Blood hemoglobin measurement (mass/volume)Ordered By: Lyly Wade on 02-16-2023 Hemoglobin (Bld) [Mass/Vol] 15.0 g/dL 12.0-15.0 [facility] Blood lymphocytes/100 leukoc ytesOrdered By: Lyly Wade on 02-16-2023 Lymphocytes/100 WBC (Bld) 34.1 % 19-41 [facility] Blood monocytes/100 leukocyt esOrdered By: Lyly Wade on 02-16-2023 Monocytes/100 WBC (Bld) 7.3 % 0-10 [facility] Blood platelet mean volumeOr dered By: Lyly Wade on 02-16-2023 Platelet mean volume (Bld) [Entitic vol] 12.1 fL 6.2-12.0 [facility] Determination of erythrocyte mean corpuscular volume (MCV)Ordered By: Lyly Wade on 02-16-2023 MCV (RBC) [Entitic vol] 93.2 fL 81-99 [facility] Hematocrit Auto (Bld) [Volum e fraction]Ordered By: Lyly Wade on 02-16-2023 Hematocrit (Bld) [Volume fraction] 46.6 % 37-47 [facility] Laboratory - Chemistry and C hemistry - challengeOrdered By: Lyly Wade on 02-16-2023 CO2 [Moles/Vol] 28.0 mmol/L 21.0-32.0 [facility] Urea nitrogen/Creatinine [Mass ratio] 16.8 mg/mg 10-20 [facility] Laboratory - Hematology and Cell countsOrdered By: Lyly Wade on 02-16-2023 Erythrocyte distribution width (RBC) [Entitic vol] 43.1 fL 35.1-43.9 [facility] Erythrocyte distribution width (RBC) [Ratio] 12.7 % 11.6-14.6 [facility] Immature granulocytes/100 WBC (Bld) 0.300 % 0.0-0.9 [facility] Comment on above: IG% - Immature Granu locytes (promyelocytes, myelocytes and metamyelocytes) > 1% indicates that a LEFT SHIFT is Present. MCH (RBC) [Entitic mass] 30.0 pg 27.0-32.0 [facility] Nucleated RBC/100 WBC (Bld) [Ratio] 0 % 0-5 [facility] MCHC Auto (RBC) [Mass/Vol]Or dered By: Lyly Wade on 02-16-2023 MCHC (RBC) [Mass/Vol] 32.2 g/dL 32-36 [facility] No Panel InformationOrdered By: Lyly Wade on 02-16-2023 Estimated GFR (MDRD) Amer 81 mL/min >60 [facility] Comment on above: GFR Calc Estimated GFR (MDRD) Non-Af Amer 67 mL/min >60 [facility] Comment on above: Non- GFR Calc Thyroid Stimulating Hormone (TSH) 2.08 uIU/mL 0.358-3.74 [facility] Platelets bldOrdered By: Akbar Wade on 02-16-2023 Platelets (Bld) [#/Vol] 179 10*3/uL 150-450 [facility] Serum or plasma calcium mary grace urement (mass/volume)Ordered By: Lyly Wade on 02-16-2023 Calcium [Mass/Vol] 8.8 mg/dL 8.5-10.1 [facility] Serum or plasma creatinine m easurement (mass/volume)Ordered By: Lyly Wade on 02-16-2023 Creatinine [Mass/Vol] 0.90 mg/dL 0.55-1.02 [facility] Comment on above: The validity of the calculated GFR & GFRAA in patients over 70 years has not been determined. Clinical correlation is essential. Serum or plasma urea nitroge n measurement (mass/volume)Ordered By: Lyly Wade on 02-16-2023 Urea nitrogen [Mass/Vol] 15 mg/dL 7-18 [facility] Thin prep Papanicolaou smear with manual screeningOrdered By: Lyly Wade on 02-16-2023 Thin prep Papanicolaou smear with manual screening 2 5-15 [facility] Absolute lymphocyte counton 10-13-2021 Lymphocytes Auto (Unsp spec) [#/Vol] 1.94 10*3/uL 0.83-4.51 [facility] Work Phone: Basophil percentageon 2021 Basophils/100 WBC (Bld) 0.6 % 0-1 [facility] Work Phone: Chloride [Moles/Vol] 105 mmol/L 98-107 [facility] Work Phone: Eosinophils/100 WBC (Bld) 6.0 % 0-5 [facility] Work Phone: Glucose [Mass/Vol] 85 mg/dL 74-106 [facility] Work Phone: Neutrophils (Bld) [#/Vol] 3.5 10*3/uL 2.0-7.7 [facility] Work Phone: Neutrophils/100 WBC (Bld) 55.7 % 47-70 [facility] Work Phone: Potassium [Moles/Vol] 4.0 mmol/L 3.5-5.1 [facility] Work Phone: Sodium [Moles/Vol] 140 mmol/L 136-145 [facility] Work Phone: WBC (Bld) [#/Vol] 6.2 10*3/uL 4.4-11.0 [facility] Work Phone: Blood erythrocytes count (nu mber/volume)on 10-13-2021 RBC (Bld) [#/Vol] 4.91 10*6/uL 4.2-5.4 [facility] Work Phone: Blood hemoglobin measurement (mass/volume)on 10-13-2021 Hemoglobin (Bld) [Mass/Vol] 14.9 g/dL 12.0-15.0 [facility] Work Phone: Blood lymphocytes/100 leukoc yteson 10-13-2021 Lymphocytes/100 WBC (Bld) 31.3 % 19-41 [facility] Work Phone: Blood monocytes/100 leukocyt eson 10-13-2021 Monocytes/100 WBC (Bld) 6.1 % 0-10 [facility] Work Phone: Blood platelet mean volumeon 10-13-2021 Platelet mean volume (Bld) [Entitic vol] 11.6 fL 6.2-12.0 [facility] Work Phone: Determination of erythrocyte mean corpuscular volume (MCV)on 10-13-2021 MCV (RBC) [Entitic vol] 90.8 fL 81-99 [facility] Work Phone: Hematocrit Auto (Bld) [Volum e fraction]on 10-13-2021 Hematocrit (Bld) [Volume fraction] 44.6 % 37-47 [facility] Work Phone: Laboratory - Chemistry and C hemistry - challengeon 10-13-2021 CO2 [Moles/Vol] 30.0 mmol/L 21.0-32.0 [facility] Work Phone: Urea nitrogen/Creatinine [Mass ratio] 27.1 mg/mg 10-20 [facility] Work Phone: Laboratory - Hematology and Cell countson 10-13-2021 Erythrocyte distribution width (RBC) [Entitic vol] 41.6 fL 35.1-43.9 [facility] Work Phone: Erythrocyte distribution width (RBC) [Ratio] 12.6 % 11.6-14.6 [facility] Work Phone: Immature granulocytes/100 WBC (Bld) 0.300 % 0.0-0.9 [facility] Work Phone: Comment on above: IG% - Immature Granu locytes (promyelocytes, myelocytes and metamyelocytes) > 1% indicates that a LEFT SHIFT is Present. MCH (RBC) [Entitic mass] 30.3 pg 27.0-32.0 [facility] Work Phone: Nucleated RBC/100 WBC (Bld) [Ratio] 0 % 0-5 [facility] Work Phone: MCHC Auto (RBC) [Mass/Vol]on 10-13-2021 MCHC (RBC) [Mass/Vol] 33.4 g/dL 32-36 [facility] Work Phone: No Panel Informationon 10-13 Estimated GFR (MDRD) Amer 96 mL/min >60 [facility] Work Phone: Comment on above: GFR Calc Estimated GFR (MDRD) Non-Af Amer 80 mL/min >60 [facility] Work Phone: Comment on above: Non- GFR Calc Thyroid Stimulating Hormone (TSH) 1.31 uIU/mL 0.358-3.74 [facility] Work Phone: Platelets bldon 10-13-2021 Platelets (Bld) [#/Vol] 182 10*3/uL 150-450 [facility] Work Phone: Serum or plasma calcium mary grace urement (mass/volume)on 10-13-2021 Calcium [Mass/Vol] 9.0 mg/dL 8.5-10.1 [facility] Work Phone: Serum or plasma creatinine m easurement (mass/volume)on 10-13-2021 Creatinine [Mass/Vol] 0.77 mg/dL 0.55-1.02 [facility] Work Phone: Comment on above: The validity of the calculated GFR & GFRAA in patients over 70 years has not been determined. Clinical correlation is essential. Serum or plasma urea nitroge n measurement (mass/volume)on 10-13-2021 Urea nitrogen [Mass/Vol] 21 mg/dL 7-18 [facility] Work Phone: Thin prep Papanicolaou smear with manual screeningon 10-13-2021 Thin prep Papanicolaou smear with manual screening 5 5-15 [facility] Work Phone: Vashti 06-09-2021 [facility] HNO ID: [id number] Author: Mammography Coordinator Service: ? Author Type: Physician Type: Letter Filed: 06/10/2021 11:32 PM Note Text: June 09, 2021 PID: [id number] Anna Cruz [address] [place] [address] Dear Ms. Cruz, We are pleased to inform you that the results of your recent breast imaging exam on 06/09/2021 are normal. Your mammogram demonstrates that you have dense breast tissue, which could hide abnormalities. Dense breast tissue, in and of itself, is a relatively common condition. Therefore, this information is not provided to cause undue concern; rather, it is to raise your awareness and promote discussion with your health care provider regarding the presence of dense breast tissue in addition to other risk factors. Early detection of cancer is very important. We also understand recommendations regarding breast cancer screening are controversial. Please discuss with your primary care provider which strategy is best for you and whether a mammogram is right for you. Your imaging studies and report will be kept on file at [facility] as part of your permanent medical record and are available for your continuing care. Thank you for allowing us to help in meeting your health care needs. Sincerely, Dr. Crane Interpreting Radiologist [facility] (Normal over 40) Normal [facility] SCREENINGon 06-09-2021 [facility] SCREENING * * *Final Report* * * DATE OF EXAM: Jun 09 2021 7:37AM [facility] [id number] - [facility] SCREENING / PROCEDURE REASON: Encounter for screening mammogram for malignant neoplasm of breast * * * * Physician Interpretation * * * * RESULT: #[id number] - [facility] SCREENING BILATERAL DIGITAL SCREENING MAMMOGRAM WITH CAD: 06/09/2021 HISTORY: Screening Mammogram - patient reports NO breast symptoms /priors available for comparison. RESULT: TECHNIQUE: The study was acquired using full field digital technology and interpreted from soft copy. Current study was also evaluated with a Computer Aided Detection (CAD). Comparison is made to exams dated: 07/29/2019 mammogram, 06/22/2018 mammogram, 10/09/2015 mammogram, 09/08/2014 mammogram, and 09/05/2013 mammogram - [facility]. The tissue of both breasts is heterogeneously dense. This may lower the sensitivity of mammography. There is a biopsy clip in the left breast. No significant masses, calcifications, or other findings are seen in either breast. There has been no significant interval change. IMPRESSION: NEGATIVE There is no mammographic evidence of malignancy. A 1 year screening mammogram is recommended. Kinjla english/kong:06/09/2021 09:27:32 [employer]venience Store Manager(s): RT Marleen(R)(M), [facility] letter sent: Normal over 40 Mammogram BI-RADS: 1 Negative Multiple national specialty organizations have released breast cancer screening guidelines for women at average risk for developing breast cancer - guidelines that are based on both evidence and opinion, yet differ on when to start and how often to screen for breast cancer. With representation from Breast Imaging, Internal Medicine, Women's Health, Family Medicine, and Medical/Surgical Oncology, the [facility] has carefully reviewed the data and reached the following consensus: 1) All women should engage in shared decision-making with their providers to decide when to start and how often to screen; 2) All women should have the opportunity to start screening mammography at age 40; 3) For women ages 45-55, we recommend annual screening mammograms; 4) For women ages 55 and over, we support both the transition from an annual to a biennial interval if this aligns more with patient's values and preferences, or continuation with annual screening; 5) All women should discuss with their providers when to stop screening mammograms. Sparker And Patcher: Kong Transcribe Date/Time: Jun 09 2021 7:11A Dictated by: KINJAL CRANE MD This examination was interpreted and the report reviewed and electronically signed by: KINJAL CRANE MD on Jun 09 2021 9:27AM EST [id number] Normal [facility] Vital Signs Date Time Vital Sign Value Performing Clinician Faci lity 06-19-2025 08:33-0400 Body mass index (BMI) [Ratio] 36.7 kg/m2 Dr. Rajesh Carroll MD Work Phone: [facility] 06-19-2025 08:33-0400 Body weight 97.[address] Rajesh Carroll MD Work Phone: [facility] 06-19-2025 08:33-0400 Diastolic blood pressure 71 mm[Hg] Dr. Rajesh Carroll MD Work Phone: [facility] 06-19-2025 08:33-0400 Heart rate 68 /min Dr. Rajesh Carroll MD Work Phone: [facility] 06-19-2025 08:33-0400 Respiratory rate 16 /min Dr. Rajesh Carroll MD Work Phone: [facility] 06-19-2025 08:33-0400 SaO2% (BldA) [Mass fraction] 96 % Dr. Rajesh Carroll MD Work Phone: [facility] 06-19-2025 08:33-0400 Systolic blood pressure 117 mm[Hg] Dr. Rajesh Carroll MD Work Phone: [facility] 06-26-2023 09:26-0400 Diastolic Blood Pressure Non-Invasive [address] PILY PINTO MD [facility] 06-26-2023 09:26-0400 Heart rate 66 /min DR PILY PINTO MD [facility] 06-26-2023 09:26-0400 Respiratory rate 22 /min DR PILY PINTO MD [facility] 06-26-2023 09:26-0400 Systolic Blood Pressure Non-Invasive [address] PILY PINTO MD [facility] 06-26-2023 09:20-0400 Diastolic Blood Pressure Non-Invasive [address] PILY PINTO MD [facility] 06-26-2023 09:20-0400 Heart rate 60 /min DR PILY PINTO MD [facility] 06-26-2023 09:20-0400 Respiratory rate 20 /min DR PILY PINTO MD [facility] 06-26-2023 09:20-0400 Systolic Blood Pressure Non-Invasive [address] PILY PINTO MD [facility] 06-26-2023 09:15-0400 Diastolic Blood Pressure Non-Invasive [address] PLIY PINTO MD [facility] 06-26-2023 09:15-0400 Heart rate 64 /min DR PILY PINTO MD [facility] 06-26-2023 09:15-0400 Respiratory rate 18 /min DR PILY PINTO MD [facility] 06-26-2023 09:15-0400 Systolic Blood Pressure Non-Invasive [address] PILY PINTO MD [facility] 06-26-2023 09:10-0400 Respiratory Rate - Anes 25 br/min DR PILY PINTO MD [facility] 06-26-2023 09:05-0400 Respiratory Rate - Anes 23 br/min DR PILY PINTO MD [facility] 06-26-2023 09:00-0400 Respiratory Rate - Anes 14 br/min DR PILY PINTO MD [facility] 06-26-2023 07:43-04[address] Pressure Cuff Size DR PILY PINTO MD [facility] 06-26-2023 07:43-[address] PILY PINTO MD [facility] 06-26-2023 07:43-[address] PILY PINTO MD [facility] 06-26-2023 07:43-0400 Body height 165.[address] PILY PINTO MD [facility] 06-26-2023 07:43-0400 Body temperature 97.52 [degF] DR PILY PINTO MD [facility] 06-26-2023 07:43-0400 Body weight [address] PILY PINTO MD [facility] 06-26-2023 07:43-0400 Body weight 36.69 kg/m2 DR PILY PINTO MD [facility] 06-26-2023 07:43-0400 Heart rate 76 /min DR PILY PINTO MD [facility] 11-23-2022 15:16-0400 Body height 162.[address] Jax Carroll Work Phone: [facility] 11-23-2022 15:16-0400 Diastolic blood pressure 70 mm[Hg] Dr. Jax Carroll Work Phone: [facility] 11-23-2022 15:16-0400 Systolic blood pressure 118 mm[Hg] Dr. Jax Carroll Work Phone: [facility] 11-23-2022 15:16-0400 Body mass index (BMI) [Ratio] 42.5 kg/m2 Dr. Jax Carroll Work Phone: [facility] 11-23-2022 15:16-0400 Body weight 112.[address] Jax Carroll Work Phone: [facility] 11-23-2022 15:16-0400 Heart rate 80 /min Dr. Jax Carroll Work Phone: [facility] 11-23-2022 15:16-0400 Respiratory rate 18 /min Dr. Jax Carroll Work Phone: [facility] 11-23-2022 15:16-0400 SaO2% (BldA) [Mass fraction] 95 % Dr. Jax Carroll Work Phone: [facility] 03-25-2022 08:31-0400 Body height 162.[address] Jax Carroll Work Phone: [facility] Work Phone: 03-25-2022 08:30-0400 Body mass index (BMI) [Ratio] 40.8 kg/m2 Dr. Jax Carroll Work Phone: [facility] Work Phone: 03-25-2022 08:30-0400 Body weight 107.[address] Jax Carroll Work Phone: [facility] Work Phone: 03-25-2022 08:30-0400 Diastolic blood pressure 80 mm[Hg] Dr. Jax Carroll Work Phone: [facility] Work Phone: 03-25-2022 08:30-0400 Heart rate 80 /min Dr. Jax Carroll Work Phone: [facility] Work Phone: 03-25-2022 08:30-0400 Systolic blood pressure 102 mm[Hg] Dr. Jax Carroll Work Phone: [facility] Work Phone: 12-16-2021 12:23-0400 Body height 162.[address] Jax Carroll Work Phone: [facility] Work Phone: 12-16-2021 12:23-0400 Body mass index (BMI) [Ratio] 40.1 kg/m2 Dr. Jax Carroll Work Phone: [facility] Work Phone: 12-16-2021 12:23-0400 Body weight 106.[address] Jax Carroll Work Phone: [facility] Work Phone: 12-16-2021 12:23-0400 Diastolic blood pressure 70 mm[Hg] Dr. Jax Carroll Work Phone: [facility] Work Phone: 12-16-2021 12:23-0400 Heart rate 74 /min Dr. Jax Carroll Work Phone: [facility] Work Phone: 12-16-2021 12:23-0400 Respiratory rate 16 /min Dr. Jax Carroll Work Phone: [facility] Work Phone: 12-16-2021 12:23-0400 SaO2% (BldA) [Mass fraction] 96 % Dr. Jax Carroll Work Phone: [facility] Work Phone: 12-16-2021 12:23-0400 Systolic blood pressure 103 mm[Hg] Dr. Jax Carroll Work Phone: [facility] Work Phone: Encounters Encounter Date Encounter Type Care Provider Facility Start: 07-16-2025 ambulatory Lyly WOODS Facility:[facility] Start: 07-01-2025 ambulatory Pati Presley NP Facility :[facility] Start: 06-19-2025 End: 06-19-2025 Patient encounter procedure Lyly WOODS -[facility] Work Phone: Start: 06-19-2025 End: 06-19-[address] Rajesh Carroll MD Work Phone: -[facility] Start: 12-17-2024 End: 12-17-2024 ambulatory [place] Rosenthal Facility:[facility] Start: 06-26-2023 End: 06-26-[address] PILY PINTO MD Facility:[facility] Start: 06-26-2023 End: 06-26-[address] PILY PINTO MD [facility] Start: 04-26-2023 End: 04-26-2023 ambulatory [facility] Work Phone: Start: 04-26-2023 End: 04-26-2023 Patient encounter procedure [facility]-Outpatient Bone Densitometry Work Phone: Start: 02-17-2023 End: 02-17-[address] Jax Carroll Work Phone: [facility] Work Phone: Start: 02-17-2023 End: 02-17-[address] Jax Carroll Work Phone: [facility]-Pulmonary Services/Neurology Start: 02-16-2023 End: 02-16-[address] Jax Carroll Work Phone: [facility] Work Phone: Start: 02-16-2023 End: 02-16-[address] Jax Carroll Work Phone: [facility] Start: 11-23-2022 End: 11-23-[address] Jax Carroll Work Phone: [facility] Start: 04-14-2022 End: 04-14-[address] Jax Carroll Work Phone: [facility]-Sleep Lab Start: 04-13-2022 Non-patient / Non-visit Dr. Jax Carroll Work Phone: [facility] Start: 04-13-2022 End: 04-13-[address] Jax Carroll Work Phone: [facility]-Cardiovascular Services Start: 03-25-2022 End: 03-25-[address] Jax Carroll Work Phone: [facility] Start: 01-21-2022 Non-patient / Non-visit Dr. Jax Carroll Work Phone: [facility] Start: 01-21-2022 End: 01-21-[address] Jax Carroll Work Phone: [facility]-Cardiovascular Services Start: 12-16-2021 End: 12-16-[address] Jax Carroll Work Phone: [facility] Start: 12-03-2021 Non-patient / Non-visit Dr. Jax Carroll Work Phone: [facility] Start: 10-13-2021 End: 10-13-[address] Jax Carroll Work Phone: [facility] Procedures Date Procedure Procedure Detail Performing Clinician Start: 04-26-2023 Dual energy X-ray absorptiometry Start: 04-26-2023 Screening mammography Start: 04-13-2022 Radionuclide imaging of perfusion of myocardium under exercise stress Dr. Jax Carroll Work Phone: section DR PILY PINTO MD Comment on above: x2 Plan of Treatment Date Care Activity Detail Author Start: 06-19-2025 CT angiography of co ronary arteries [facility] Start: 06-19-2025 End: 06-19-2025 Evaluation of diagnostic study results [facility] Start: 11-23-2022 Evaluation of diagno stic study results [facility] Comprehensive metabo lic 1999 panel - Serum or Plasma [facility] Lipid 1996 panel - S jaswinder or Plasma [facility] Immunizations Immunization Date Immunization Notes Care Provider Fa cility 12-14-2020 COVID-19, mRNA, LNP- S, PF, 100 mcg or 50 mcg dose; Translations: [Moderna COVID-19 Vaccine] DR PILY PINTO MD [facility] 11-16-2020 COVID-19, mRNA, LNP- S, PF, 100 mcg or 50 mcg dose; Translations: [Moderna COVID-19 Vaccine] DR PILY PINTO MD [facility] Vaccine [facility] Payers Date Payer Category Payer Self-pay [id number] 2023 Medicare [id number] 1955 Unknown [id number] Private Health Insurance [id number] Unknown [id number] Unknown [id number] Unknown [id number] [id number] [id number] Unknown [id number] [id number] [id number] Unknown [id number] 2.16.8 [id number] Unknown [id number] [id number] [id number] Unknown [id number] 2.16.8 [id number] Social History Date Type Detail Facility Start: 12-16-2021 End: 11-23-2022 Tobacco smoking status NHIS Unknown if ever smoked [facility] Start: 1955 Sex Assigned At Female [facility] Tobacco smoking status No Smokin g Status Entered [facility] Start: 12-01-2023 Tobacco smoking stat us NHIS Ex-smoker (finding) [facility] Sex Female [facility] Functional Status Date Assessment Result Facility 06-26-2023 Functional Status [facility] [place] [facility] 06-26-2023 Functional Status Repositions self [facility] Clinical Notes 06-09-2021 to 06-26-2023 Note Date & Type Note Facility 06-26-2023 Evaluation + Plan note Extrac terri from: Title:Clinical Document Author:PILY PINTO Date:06/26/23 [place] [facility] ADMISSION HISTORY AN D PHYSICIAL CHIEF COMPLAINT: HISTORY OF PRESENT ILLNESS: REVIEW OF SYSTEMS: ACTIVE PROBLEMS: (1) Atrial fibrillation ([id number]) MEDICATIONS: Active Inpt Meds: None Active PRN Meds: None One Time Meds: None Active IV Meds: None ALLERGIES: (1) NKA FAMILY HISTORY: SOCIAL HISTORY: PHYSICAL EXAM: VITALS: [id number](kg) 06/26 07:4336.4--[id number]--52/95428.0 24 Hr Tmax: 36.4 at 06/26 07:43 36 Hr Tmax: 36.4 at 06/26 07:43 Vital Signs are the last 5 in the past 48 hours. Weights display the last 5 within 7 days. Initial Wt: 06/26 100.0 kg 220 lb Current Wt: 06/26 100.0 kg 220 lb GENERAL: HEENT: CARDIOVASCULAR: RESPIRATORY: ABDOMEN: EXREMETIES: NEUROLOGICAL: PSYCHIATRIC: LABS: No 36hr Lab Data DIAGNOSTICS: IMPRESSION: PLAN: History and Physical Update I have examined the patient; reviewed the H&P and there are no changes to the H&P unless noted below. [facility] 10-16-2023 Hospital Discharge instructions Patient Education 06/26/2023 09:19:44 Monitored Anesthesia Care, Care After Monitored Anesthesia Care, Care After These instructions provide you with information about caring for yourself after your procedure. Your health care provider may also give you more specific instructions. Your treatment has been plannedaccording to current medical practices, but problems sometimes occur. Call your health care provider if you have any problems or questions after your procedure. What can I expect after the procedure? After your procedure, you may: Feel sleepy for several hours. Feel clumsy and have poor balance for several hours. Feel forgetful about what happened after the procedure. Have poor judgment for several hours. Feel nauseous or vomit. Have a sore throat if you had a breathing tube during the procedure. Follow these instructions at home: For at least 24 hours after the procedure: Have a responsible adult stay with you. It is important to have someone help care for you until youare awake and alert. Rest as needed. Do not: ?Participate in activities in which you could fall or become injured. ?Drive. ?Use heavy machinery. ?Drink alcohol. ?Take sleeping pills or medicines that cause drowsiness. ?Make important decisions or sign legal documents. ?Take care of children on your own. Eating and drinking Follow the diet that is recommended by your health care provider. If you vomit, drink water, juice, or soup when you can drink without vomiting. Make sure you have little or no nausea before eating solid foods. General instructions Take expe-mss-tiaeocs and prescription medicines only as told by your health care provider. If you have sleep apnea, surgery and certain medicines can increase your risk for breathing problems. Follow instructions from your health care provider about wearing your sleep device: ?Anytime you are sleeping, including during daytime naps. ?While taking prescription pain medicines, sleeping medicines, or medicines that make you drowsy. If you smoke, do not smoke without supervision. Keep all follow-up visits as told by your health care provider. This is important. Contact a health care provider if: You keep feeling nauseous or you keep vomiting. You feel light-headed. You develop a rash. You have a fever. Get help right away if: You have trouble breathing. Summary For several hours after your procedure, you may feel sleepy and have poor judgment. Have a responsible adult stay with you for at least 24 hours or until you are awake and alert. This information is not intended to replace advice given to you by your health care provider. Make sure you discuss any questions you have with your health care provider. Document Released: 12/18/2016 Document Revised: 11/26/2018 Document Reviewed: 12/18/2016 [employer] Patient Education 2020 [employer]. 06/26/2023 09:19:33 Colonoscopy, Adult, Care After Colonoscopy, Adult, Care After This sheet gives you information about how to care for yourself after your procedure. Your health care provider may also give you more specific instructions. If you have problems or questions, contact your health care provider. What can I expect after the procedure? After the procedure, it is common to have: A small amount of blood in your stool for 24 hours after the procedure. Some gas. Mild abdominal cramping or bloating. Follow these instructions at home: General instructions For the first 24 hours after the procedure: ?Do not drive or use machinery. ?Do not sign important documents. ?Do not drink alcohol. ?Do your regular daily activities at a slower pace than normal. ?Eat soft, wwlu-nh-sultfq foods. Take ycbg-sve-kuglrwr or prescription medicines only as told by your health care provider. Relieving cramping and bloating Try walking around when you have cramps or feel bloated. Apply heat to your abdomen as told by your health care provider. Use a heat source that your healthcare provider recommends, such as a moist heat pack or a heating pad. ?Place a towel between your skin and the heat source. ?Leave the heat on for 20 30 minutes. ?Remove the heat if your skin turns bright red. This is especially important if you are unable to feel pain, heat, or cold. You may have a greater risk of getting burned. Eating and drinking Drink enough fluid to keep your urine pale yellow. Resume your normal diet as instructed by your health care provider. Avoid heavy or fried foods thatare hard to digest. Avoid drinking alcohol for as long as instructed by your health care provider. Contact a health care provider if: You have blood in your stool 2 3 days after the procedure. Get help right away if: You have more than a small spotting of blood in your stool. You pass large blood clots in your stool. Your abdomen is swollen. You have nausea or vomiting. You have a fever. You have increasing abdominal pain that is not relieved with medicine. Summary After the procedure, it is common to have a small amount of blood in your stool. You may also have mild abdominal cramping and bloating. For the first 24 hours after the procedure, do not drive or use machinery, sign important documents, or drink alcohol. Contact your health care provider if you have a lot of blood in your stool, nausea or vomiting, a fever, or increased abdominal pain. This information is not intended to replace advice given to you by your health care provider. Make sure you discuss any questions you have with your health care provider. Document Released: 04/11/2005 Document Revised: 06/20/2018 Document Reviewed: 11/08/2016 [employer] Patient Education 2020 [employer] Follow Up Care 06/12/2023 12:37:36 With:PILY PINTO MD Address: [address] [address] [phone] When: Unknown Comments:Follow-up as needed. Next colonoscopy in 10 years. [facility] 10-16-2023 Anesthesiology Consult note Patient: ANNA CRUZ Age: 67 years Sex: Female : 1955 Associated Diagnoses: None Author: OXANA SANTANA ASSEMBLING FABRICATOR-CHEMICAL LIBRARIAN Assessment Postanesthesia assessment Vitals: Vital signs from flowsheet : Vital Signs 06/26/2023 9:26 EDT Heart Rate Monitored 66 bpm Respiratory Rate 22 br/min HI Systolic Blood Pressure Non-Invasive 91 mmHg Diastolic Blood Pressure Non-Invasive 79 mmHg 06/26/2023 9:20 EDT Heart Rate Monitored 60 bpm Respiratory Rate 20 br/min Systolic Blood Pressure Non-Invasive 101 mmHg Diastolic Blood Pressure Non-Invasive 70 mmHg 06/26/2023 9:15 EDT Heart Rate Monitored 64 bpm Respiratory Rate 18 br/min Systolic Blood Pressure Non-Invasive 94 mmHg Diastolic Blood Pressure Non-Invasive 43 mmHg 06/26/2023 9:10 EDT Heart Rate Monitored 58 bpm bpm Respiratory Rate - Anes 25 br/min br/min 06/26/2023 9:05 EDT Heart Rate Monitored 65 bpm bpm Respiratory Rate - Anes 23 br/min br/min Systolic Blood Pressure Non-Invasive 92 mmHg mmHg Diastolic Blood Pressure Non-Invasive 59 mmHg mmHg 06/26/2023 9:00 EDT Heart Rate Monitored 66 bpm bpm Respiratory Rate - Anes 14 br/min br/min Systolic Blood Pressure Non-Invasive 107 mmHg mmHg Diastolic Blood Pressure Non-Invasive 53 mmHg mmHg 06/26/2023 8:57 EDT Systolic Blood Pressure Non-Invasive 145 mmHg mmHg Diastolic Blood Pressure Non-Invasive 76 mmHg mmHg 06/26/2023 7:43 EDT Temperature Temporal Artery 36.4 DegC Apical Heart Rate 76 bpm Respiratory Rate 18 br/min Systolic Blood Pressure Non-Invasive 103 mmHg Diastolic Blood Pressure Non-Invasive 68 mmHg Blood Pressure Method Automatic Blood Pressure Location Left arm Blood Pressure Cuff Size Large . Mental status: alert & oriented x 4. Respiratory function: lungs are clear to auscultation. Respiratory support: none. CV function: Normal rate. Cardiovascular support: none. Pain. Nausea status: see nursing documentation of medications. Postoperative hydration status: within normal limits. Digitally Signed by OXANA SANTANA on 06/26/2023 09:29 AM [facility]10-16-2023 Summary of episode note Discharge Instructions Thank you for allowing [place] to assist you with your healthcare needs. The following is importantdischarge information regarding your hospital visit. Your Care Team PHYSICIAN, NONE Your Diagnosis Colonoscopy What to do next Follow Up Appointments Follow Up with PILY PINTO MD When Why: Follow-up as needed. Next colonoscopy in 10 years. Where: [address] [address] [phone] The Following Activity and Diet Have Been Ordered for You Discharge Activity - Ordered -- NO activity restrictions, 06/26/23 9:11:00 EDT Discharge Diet - Ordered -- Follow the post-operative/post-procedure diet instructions provided by your physician's office.,06/26/23 9:11:00 EDT The Following Equipment Has Been Ordered for You Discharge Home Equipment Discharge Wound Care - Ordered -- Follow the post-operative/post-procedure wound care instructions provided by your physician's office., 06/26/23 9:11:00 EDT Allergies NKA Medications Please ask your primary doctor or pharmacist before taking any other medication not listed, including over the counter drugs, herbal medications, vitamins and or supplements as they may interact withyour home medications. What How Much When Instructions Last Dose Unchanged apixaban (Eliquis 5 mg oral tablet) 1 tab(s) by mouth Two (2) times a day Unchanged flecainide (flecainide 100 mg oral tablet) 1 tab(s) by mouth Every 12 hours Unchanged metoprolol (Metoprolol Succinate ER 25 mg oral TABLET extended release) 1 tab(s) by mouth Once a day Please take this list to your next doctor s visit. Bring all medications you take, including over the counter medications, herbals and other supplements with you to your doctor s visit. Patients and families are reminded to discard old lists and to update any records with all medication providers or retail pharmacies. Education Materials Monitored Anesthesia Care, Care After These instructions provide you with information about caring for yourself after your procedure. Your health care provider may also give you more specific instructions. Your treatment has been plannedaccording to current medical practices, but problems sometimes occur. Call your health care provider if you have any problems or questions after your procedure. What can I expect after the procedure? After your procedure, you may: Feel sleepy for several hours. Feel clumsy and have poor balance for several hours. Feel forgetful about what happened after the procedure. Have poor judgment for several hours. Feel nauseous or vomit. Have a sore throat if you had a breathing tube during the procedure. Follow these instructions at home: For at least 24 hours after the procedure: Have a responsible adult stay with you. It is important to have someone help care for you until youare awake and alert. Rest as needed. Do not: ? Participate in activities in which you could fall or become injured. ? Drive. ? Use heavy machinery. ? Drink alcohol. ? Take sleeping pills or medicines that cause drowsiness. ? Make important decisions or sign legal documents. ? Take care of children on your own. Eating and drinking Follow the diet that is recommended by your health care provider. If you vomit, drink water, juice, or soup when you can drink without vomiting. Make sure you have little or no nausea before eating solid foods. General instructions Take evoo-fyr-wlimbyn and prescription medicines only as told by your health care provider. If you have sleep apnea, surgery and certain medicines can increase your risk for breathing problems. Follow instructions from your health care provider about wearing your sleep device: ? Anytime you are sleeping, including during daytime naps. ? While taking prescription pain medicines, sleeping medicines, or medicines that make you drowsy. If you smoke, do not smoke without supervision. Keep all follow-up visits as told by your health care provider. This is important. Contact a health care provider if: You keep feeling nauseous or you keep vomiting. You feel light-headed. You develop a rash. You have a fever. Get help right away if: You have trouble breathing. Summary For several hours after your procedure, you may feel sleepy and have poor judgment. Have a responsible adult stay with you for at least 24 hours or until you are awake and alert. This information is not intended to replace advice given to you by your health care provider. Make sure you discuss any questions you have with your health care provider. Document Released: 12/18/2016 Document Revised: 11/26/2018 Document Reviewed: 12/18/2016 [employer] Patient Education 2020 [employer]. Colonoscopy, Adult, Care After This sheet gives you information about how to care for yourself after your procedure. Your health care provider may also give you more specific instructions. If you have problems or questions, contact your health care provider. What can I expect after the procedure? After the procedure, it is common to have: A small amount of blood in your stool for 24 hours after the procedure. Some gas. Mild abdominal cramping or bloating. Follow these instructions at home: General instructions For the first 24 hours after the procedure: ? Do not drive or use machinery. ? Do not sign important documents. ? Do not drink alcohol. ? Do your regular daily activities at a slower pace than normal. ? Eat soft, obwl-sk-cclgvg foods. Take aapa-dwp-ttkpgfb or prescription medicines only as told by your health care provider. Relieving cramping and bloating Try walking around when you have cramps or feel bloated. Apply heat to your abdomen as told by your health care provider. Use a heat source that your healthcare provider recommends, such as a moist heat pack or a heating pad. ? Place a towel between your skin and the heat source. ? Leave the heat on for 20 30 minutes. ? Remove the heat if your skin turns bright red. This is especially important if you are unable to feel pain, heat, or cold. You may have a greater risk of getting burned. Eating and drinking Drink enough fluid to keep your urine pale yellow. Resume your normal diet as instructed by your health care provider. Avoid heavy or fried foods thatare hard to digest. Avoid drinking alcohol for as long as instructed by your health care provider. Contact a health care provider if: You have blood in your stool 2 3 days after the procedure. Get help right away if: You have more than a small spotting of blood in your stool. You pass large blood clots in your stool. Your abdomen is swollen. You have nausea or vomiting. You have a fever. You have increasing abdominal pain that is not relieved with medicine. Summary After the procedure, it is common to have a small amount of blood in your stool. You may also have mild abdominal cramping and bloating. For the first 24 hours after the procedure, do not drive or use machinery, sign important documents, or drink alcohol. Contact your health care provider if you have a lot of blood in your stool, nausea or vomiting, a fever, or increased abdominal pain. This information is not intended to replace advice given to you by your health care provider. Make sure you discuss any questions you have with your health care provider. Document Released: 04/11/2005 Document Revised: 06/20/2018 Document Reviewed: 11/08/2016 [employer] Patient Education 2020 [employer]. Additional Information VACCINATE! IT SAVES LIVES! Members of the community who have not yet received the COVID-19 vaccine and would like to receive it can visit one of [facility] vaccine clinics. There are many vaccine clinic locations within the [facility]. For locations and available times, please visit https://gettheshot.coronavirus.[place].gov/. It is important to note that some COVID mobile vaccine clinics are held outdoors and may be canceled in rainy or stormy conditions. To learn more about pediatric vaccinations (ages 5-11), we invite you to visit the [facility] webpage. https://www.[email or web address].org/pages/7445-Vbdsj-Jhayfpsbxko-Ibtbzijcrc-Nunkl-Xtd stions.htmlTo learn more about the COVID-19 vaccine, we invite you to visit the CDC website for a list of frequently asked questions.https://www.cdc.gov/coronavirus/2019-ncov/vaccines/faq.html [email or web address] Patient Portal Access Instructions: Stay connected with your healthcare team and access your personal medical information anytime with the [email or web address] Patient Portal. Please follow the directions below to create your [email or web address] account: 1.Access the email account you provided upon registration to the hospital/physician office.2.Look for an invitation email from [facility].3.Open the email and access the invitation link: AcceptInvitation to [place] [facility].4.Fill in the required apple to create your account. To access your account, visit [email or web address]. Click the blue button labeled "Access Patient Portal" and then log in with the username and password that you created in the steps above. You will be able to view your test results, lab results, a summary of your visits, upcoming appointments and more. There is also a convenient messaging option where you can send secure messages to your p rovider. In addition, you will have the ability to download any documents or summaries to your computer and/or send the information securely to a physician. Remember that your healthcare information is confidential, so carefully consider who you will allowto register on the [place] [facility] Patient Portal for access to your information. You can also access the [place] [facility] Patient Portal on the [place] [facility] nini. Simply click on "Patient Portal" and then log into your account. If you would like to receive a full copy of your medical records, please contact the [facility] Medical Records Department by calling [phone], Monday through Monday between 8 a.m. and 4:30 p.m. HOW TO SAFELY DISPOSE OF PRESCRIPTION MEDICATIONS Please use one of the following methods to safely dispose of your unused medications. 1.Use a drug disposal kit: the drug disposal pouch allows you to safely discard your old and unuseddrugs. Ask your nurse to give you one when you are discharged.2.Visit a local take-back location: Many local pharmacies and police departments have programs that collect old and unwanted prescriptiondrugs. Call your local pharmacy or go to http://bit.ly/7N6Wt0q to find one close to you.3.Make use of household items: Use cat litter or old coffee grounds to dispose medications if other options arenot available. Mix your drugs with these household products, seal them in an airtight container andthrow it into the garbage. Call [facility]: [phone] to be sure your drugs can be disposed of in this way. Some medicines may require a different approach.4.Never flush your medications down the toilet. IF YOU HAVE BEEN PRESCRIBED AN OPIOID FOR PAIN If you have been prescribed an opioid (such as hydrocodone, oxycodone or morphine), it is critical to understand the possible side effects and risks of opioid pain medications. Even when taken as directed, opioids can have several side effects including: Tolerance, meaning you might need to take more of a medication for the same pain relief. Nausea, vomiting and/or constipation. Sleepiness, dizziness, dry mouth, confusion, depression or itching. Physical dependence, meaning you have withdrawal symptoms when a medication is stopped, can develop within a few days. KNOW YOUR RESPONSIBILITIES It is important to know exactly how much and how often to take the opioid pain medications you are prescribed. Never take opioids in higher amounts or more often than prescribed. Do not combine opioids with alcohol or other drugs that cause drowsiness, such as benzodiazepines, also known as benzos, including diazepam and alprazolam, muscle relaxants or sleep aids. Never sell or share prescription opioids. This is illegal. Store opioids in a secure place and out of reach of others (including children, family, friends and visitors). The last page of this document has been signed and retained as a CHART COPY. Signatures Patient Education Materials Monitored Anesthesia Care, Care After Colonoscopy, Adult, Care After Medication Leaflets My discharge plan and instructions have been reviewed and explained to me and I,ANNA CRUZ understand my current condition and have read and understand these discharge instructions. I have receiveda written copy of the plan/instructions. If I have questions, I am aware that I should contact my do ctor. 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 Signature: Date/Time: Relationship to Patient: Witness Name/Signature: Date/Time: [facility] [id number] Note [facility] ADMISSION HISTORY AND PHYSICIAL CHIEF COMPLAINT: HISTORY OF PRESENT ILLNESS: REVIEW OF SYSTEMS: ACTIVE PROBLEMS: (1) Atrial fibrillation ([id number]) MEDICATIONS: Active Inpt Meds: None Active PRN Meds: None One Time Meds: None Active IV Meds: None ALLERGIES: (1) NKA FAMILY HISTORY: SOCIAL HISTORY: PHYSICAL EXAM: VITALS: [id number](kg) 06/26 07:4336.4--[id number]--73/03162.0 24 Hr Tmax: 36.4 at 06/26 07:43 36 Hr Tmax: 36.4 at 06/26 07:43 Vital Signs are the last 5 in the past 48 hours. Weights display the last 5 within 7 days. Initial Wt: 06/26 100.0 kg 220 lb Current Wt: 06/26 100.0 kg 220 lb GENERAL: HEENT: CARDIOVASCULAR: RESPIRATORY: ABDOMEN: EXREMETIES: NEUROLOGICAL: PSYCHIATRIC: LABS: No 36hr Lab Data DIAGNOSTICS: IMPRESSION: PLAN: History and Physical Update I have examined the patient; reviewed the H&P and there are no changes to the H&P unless noted below. Digitally Signed by PILY PINTO MD on 06/26/2023 08:58 AM [facility]10-16-2023 Anesthesiology Consult note Patient: ANNA CRUZ Age: 67 years Sex: Female : 1955 Associated Diagnoses: None Author: OXANA SANTANA APRN-CHEMICAL LIBRARIAN Preoperative Information Time of last food or liquid consumption: 06/25/2023 23:59:00 Anesthesia history Patient's history: negative. Family's history: negative. Review of Systems Ear/Nose/Mouth/Throat: Negative except as documented in history of present illness. Respiratory: Negative except as documented in history of present illness. Cardiovascular: Negative except as documented in history of present illness. Gastrointestinal: Negative except as documented in history of present illness. Genitourinary: Negative except as documented in history of present illness. Endocrine: Negative except as documented in history of present illness. Musculoskeletal: Negative except as documented in history of present illness. Integumentary: Negative except as documented in history of present illness. Neurologic: Negative except as documented in history of present illness. Health Status Allergies: No active allergies have been recorded., No qualifying data available Current medications: (Selected) , No qualifying data available Problem list: No problem items selected or recorded., No qualifying data available Histories Past Medical History: No active or resolved past medical history items have been selected or recorded. Family History: No family history items have been selected or recorded. Procedure history: No active procedure history items have been selected or recorded. Social History Social & Psychosocial Habits No Data Available . Physical Examination No qualifying data available General: Alert and oriented. Airway: Normal neck range of motion. Mallampati classification: II (soft palate, fauces, uvula visible). Head: Normocephalic. Dentition Evaluation: Intact, Own teeth. Neck: Full range of motion. Respiratory: Lungs are clear to auscultation. Cardiovascular: Normal rate. Heart Sounds: Normal. Gastrointestinal: Soft. Musculoskeletal Normal range of motion. Integumentary: Intact, Warm, Dry. Neurologic: Alert, Oriented. Review / Management Results review: No qualifying data available . Assessment and Plan [place] [employer] Anesthesiologists (ASA) physical status classification: Class II. Anesthetic Preoperative Plan Premedication: intravenous. Anesthetic technique: MAC. Induction: intravenously. Maintenance airway: Mask. Postoperative pain management: Per surgeon. Risks discussed: nausea, vomiting, headache, sore throat, dental injury, hypotension, allergic reaction, serious complications. Informed consent: signed by patient. Digitally Signed by OXANA SANTANA on 06/26/2023 08:52 AM [facility]09-29-2021 NoteHNO ID: [id number] Author: John Chu Service: ? Author Type: Shoe Caser Type: Progress Notes Filed: 06/09/2021 7:10 AM Note Text: Radiology Service Progress Note PATIENT NAME: Anna Cruz DATE OF SERVICE: June 09, 2021 TIME: 7:10 AM PATIENT IDENTITY VERIFICATION COMPLETED USING TWO (2) IDENTIFIERS: Name and Date of confirmed by patient verbally. FALL SCREENING: Has the patient had 2 falls in the last year or 1 fall with injury or currently using an Ambulatory Assistive Device (Walker, Cane, Wheelchair, Crutches, etc.)? No PATIENT GENDER DATA: Female. status: : No status: NO. PATIENT RELEVANT IMPLANT DATA REVIEWED: Not Applicable RADIOLOGY DEPARTMENT: Mammography PERIPHERAL IV DATA: Not applicable SIGNED BY: John Chu June 09, 2021 7:10 [facility] Diagnosis Onset Date Resolution Status Intermittent palpitations ac susie [facility] Work Phone: Evaluation note* Diagnosis Onset Date Resolution Status PAF (paroxysmal atrial fibrillation) acute [facility] Work Phone: Evaluation noteNo assessment information available [facility] Work Phone: Evaluation note* Diagnosis Onset Date Resolution Status Admit Date Hyperlipidemia acute June 9:29am PAF (paroxysmal atrial fibrillation) chronic June 19 9:29am [facility] Work Phone: Hospital course Narrative No data available for this section [facility] Reason for referral (narrative)No reason for referral information [facility] Work Phone: Summary Purpose Family History No Family History Records Found Relationship Condition Age at Onset Recorded Date/T niko father Cardiac disease Unknown Diabetes mellitus Unknown mother Disorder of thyroid Unknown Advance Directives No Advanced Directives Records FoundNo Advanced Directives Records FoundNo Advanced Directives Records Found Chief Complaint and Reason for Visit Chief Complaint Amb Documentation TACHYCARDIA ([place]) ARRYHTHMIA Reason for Visit Intermittent palpita tions Chief Complaint ARRYHTHMIA 3 M FU PAF PAF TEJA Reason for Visit PAF (paroxysmal atri al fibrillation) Chief Complaint 9 M FU (MOVED FROM [facility]) EORDER PALPITATIONS Reason for Visit PAF (paroxysmal atri al fibrillation) Chief Complaint EORDER PALPITATIONS SCREENING/OSTEO Chief Complaint Admit Date 6 M FU June 19, 2025 9: 29am Reason for Visit Admit Date Hyperlipidemia June 19, 2025 9: 29am PAF (paroxysmal atrial fibrillation) Oct gianna 2024 9:29am Additional Source Comments INFORMATION SOURCE (unrecogn ized section and content) DATE CREATED AUTHOR 10/05/2021 [facility] DATE CREATED AUTHOR AUTHOR'S ORGANIZ ATION 07/03/2023 [facility] ([place]) DATE CREATED AUTHOR AUTHOR'S ORGANAKOSUA ATION 06/22/[address] [facility] Goals (unrecognized section and content) Goals may be documented in a n alternate sectionGoals may be documented in an alternate sectionGoals may be documented in an alternate sectionGoals may be documented in an alternate sectionGoals may be documented in an alternate sectionGoals may be documented in an alternate section No data available for this sectionGoals may be documented in an alternate section Care Teams (unrecognized sec tion and content) Team Status: Active Member Role Status Dates Dr. Jax Carroll MD Family Provider Active Dr. Jax Carroll MD Primary Care Provider Activ e Team Status: Inactive Member Role Status Dates Dr. Jax Carroll MD Primary Care Provider, Refe rring Provider Active Dr. Angel Rosenthal MD Active PEGGY Lorenzo Attending Provider Active Team Status: Active Member Role Status Dates Dr. Jax Carroll MD Primary Care Provider Activ e PEGGY Lorenzo Attending Provider, Referr ing Provider Active Team Status: Inactive Member Role Status Dates Dr. Jax Carroll MD Primary Care Provider Activ e PEGGY Lorenzo Attending Provider, Referr ing Provider Active Team Status: Inactive Member Role Status Dates Dr. Jax Carroll MD Primary Care Provider, Attending Provider, Referring Provider Active Team Status: Active Member Role/Relationship Status Dates Dr. Rajesh Carroll MD Primary care physician Act yoli Team Status: Inactive Member Role/Relationship Status Dates Dr. Rajesh Carroll MD Primary care physician Act yoli Start: June 19, 2025 End: June 19, 2025 Dr. Rajesh Carroll MD Referring Provider Active Start: June 19, 2025 End: June 19, 2025 Lyly WOODS PA Attending physician Active Start: June 19, 2025 End: June 19, 2025 FOR RECORDS PERTAINING TO PATIENTS WHO ARE OR HAVE BEEN ENROLLED IN A CHEMICAL DEPENDENCY/SUBSTANCEABUSE PROGRAM, SOME INFORMATION MAY BE OMITTED. This clinical summary was aggregated from multiple sources. Caution should be exercised in using it in the provision of clinical care. This summary normalizes information from multiple sources, and as a consequence, information in this document may materially change the coding, format and clinical context of patient data. In addition, data may be omitted in some cases. CLINICAL DECISIONS SHOULD BE BASED ON THE PRIMARY CLINICAL RECORDS. [facility]. provides no warranty or guarantee of the accuracy or completeness of information in this document.
== END | disposition home or self-care (01) ==
LOC: OPBD 07:13
PROVIDERS: PCP Family Medicine; Referring Provider Nurse Practitioner Family; Visit Provider Nurse Practitioner Family
DX: Z12.31 Encounter for screening mammogram for malignant neoplasm of breast (principal); Z78.0 Asymptomatic menopausal state; N95.9 Unspecified menopausal and perimenopausal disorder
CPT/HCPCS: 77063; 77067; 77080